=== PATIENT | male | born 1980 | race Caucasian/White ===

== ENCOUNTER 2016-09-22 20:02 | Emergency (ER) | payer SELFPAY ==
[2016-09-22] MEDS ORDERED: Proparacaine 0.5% Ophth Soln 15 ML Bottle EYEBOTH STA (21:50)
--- NOTE | 2016-09-22 22:55 | EDM.PDOC ---
ED HPI EYE COMPLAINT - General Chief Complaint: Eye Problems Stated Complaint: PAIN RT EYE Time Seen by Provider: 09/22/16 20:48 Source: Reports: Patient, Family History Limitations: Reports: No limitations - History of Present Illness INITIAL COMMENTS - FREE TEXT/NARRATIVE: HISTORY AND PHYSICAL: History of present illness: [28-year-old male with no significant past history now complaining of right eye redness for a month . Patient was seen and there is marked for this complaint at which time he had a full eye evaluation including fluorescein staining, slit- lamp examination, and intraocular pressure determination, were unremarkable and the patient was treated with anabiotic ointment for presumed conjunctivitis. Patient was referred for followup with an project superintendent however he was never able to orchestrate this followup and now has returned to the emergency department because of persistent redness and irritation in the right eye. He denies trauma or chemical exposure. Denies foreign body sensation states is irritated and watering with clear discharge. His vision is baseline. No other complaints Review of systems: As per history of present illness and below otherwise all systems reviewed and negative. Past medical history: As per history of present illness and as reviewed below otherwise noncontributory. Surgical history: As per history of present illness and as reviewed below otherwise noncontributory. Social history: No reported history of drug or alcohol abuse. Family history: As per history of present illness and as reviewed below otherwise noncontributory. Physical exam: Right eye with scleral injection, normal reactive pupil, normal- appearing cornea and anterior chamber. Normal EOMI which is painless. Lids everted no foreign body or abnormality identifiable HEENT: Atraumatic, normocephalic, pupils reactive, negative for conjunctival pallor or scleral icterus, mucous membranes moist, throat clear, neck supple, nontender, trachea midline. Lungs: Clear to auscultation, breath sounds equal bilaterally, chest nontender. Heart: S1S2, regular, negative for clicks, rubs, or JVD. Abdomen: Soft, nondistended, nontender. Negative for masses or hepatosplenomegaly. Negative for costovertebral tenderness. Pelvis: Stable nontender. Genitourinary: Deferred. Rectal: Deferred. Extremities: Atraumatic, negative for cords or calf pain. Neurovascular unremarkable. Neuro: Awake, alert, oriented. Cranial nerves grossly unremarkable. Cerebellum unremarkable. Motor and sensory unremarkable throughout. Exam nonfocal. Diagnostics: [] Therapeutics: [] Impression: [] Plan: [] Definitive disposition and diagnosis as appropriate pending reevaluation and review of above. - Related Data Allergies/ADRs: Allergies No Known Allergies Allergy (Verified 09/22/16 21:25) Home Meds: Ambulatory Orders Medication Instructions Recorded Confirmed . [No Known Home Meds] 09/22/16 09/22/16 Past Medical History - Past Health History Medical/Surgical History: Denies Medical/Surgical History - Infectious Disease History Infectious Disease History: Reports: Chicken pox Social & Family History - Family History Family Medical History: Noncontributory - Tobacco Use Smoking Status *Q: Current Every Day Smoker Years of Tobacco use: 10 Packs/Tins Daily: 1 - Caffeine Use Caffeine Use: Reports: Soda - Recreational Drug Use Recreational Drug Use: No ED ROS GENERAL - Review of Systems Review Of Systems: See Below (Per history of present illness) ED EXAM GENERAL W FULL EYE - Physical Exam Exam: See Below (Per history of present illness) Course - Vital Signs Text/Narrative:: Signs and symptoms consistent with viral conjunctivitis with scleral injection. Fluorescein staining with no uptake. Gross corneal exam normal-appearing with normal anterior chamber pupil reactive and equal bilaterally. Clear watery discharge painless extraocular muscle excursion normal. Rober-Pen examination by me with intraocular pressure of 18 on the right and 17 on the left. Patient did get relief with proparacaine administration lip was everted with no foreign body or abnormality identifiable patient states he has anabolic ointment for bedtime and he was given anabolic drops your use during the day. Patient aware of critical importance of close followup with an project superintendent for reevaluation further workup and treatment he agrees with outpatient followup strict return precautions given Last Recorded V/S: Last Vital Signs Temp 36 C 09/22/16 23:17 Pulse 84 09/22/16 23:17 Resp 16 09/22/16 23:17 BP 127/74 09/22/16 23:17 Pulse Ox 99 09/22/16 23:17 - Orders/Labs/Meds Meds: Medications Discontinued Medications Generic Name Dose Route Start Last Admin Trade Name Freq PRN Reason Stop Dose Admin Gentamicin Sulfate 1 gm 09/23/16 06:00 Gentak 0.3% Ophth Oint EYEBOTH TID KARTHIK Gentamicin Sulfate 1 gm 09/22/16 22:53 09/22/16 23:16 Gentak 0.3% Ophth Oint EYEBOTH 09/22/16 22:54 Not Given NOW STA Gentamicin Sulfate 1 ml 09/22/16 23:09 09/22/16 23:14 Garamycin 0.3% Ophth Soln EYEBOTH 09/22/16 23:10 1 drop NOW STA Administration Proparacaine HCl 1 ml 09/22/16 21:50 09/22/16 21:55 Proparacaine 0.5% Ophth Soln EYEBOTH 09/22/16 21:51 1 ml NOW STA Administration Departure - Departure Time of Disposition: 22:50 Disposition: Home, Self-Care 01 Condition: good Clinical Impression: Conjunctivitis, Scleral injection, Eye pain Instructions: Viral Conjunctivitis Referrals: PCP,None [Primary Care Provider] - Forms: ED Department Discharge Additional Instructions: It appears that you have conjunctivitis. This is most likely the result of a virus and should get better on its own, however given that you've had the symptoms for Weeks, it is appropriate for you to followup with an eye doctor Take anti-inflammatory medicines like ibuprofen as well as Tylenol if you continue to have discomfort. Use 2 drops in the affected eye every 2 hours will awake and quarter-inch ointment to have previously been prescribed at bedtime . Is critically important that you followup with an project superintendent tomorrow. Call in the morning for an appointment.
[2016-09-22] MEDS ORDERED: Gentamicin 0.3% Ophth Soln 5 ML Bottle EYEBOTH STA (23:09)
[2016-09-22 23:19] VITALS: BP 127/74
== END 2016-09-22 23:19 | disposition home or self-care (01) ==
LOC: MW.ED 20:02
DX: H10.9 Unspecified conjunctivitis (principal); F17.210 Nicotine dependence, cigarettes, uncomplicated
CPT/HCPCS: 99282; A9270; 99283

== ENCOUNTER 2016-12-23 15:11 | Emergency (ER) | payer SELFPAY ==
--- NOTE | 2016-12-23 16:22 | EDM.PDOC ---
ED HPI GENERAL MEDICAL PROBLEM - General Chief Complaint: General Stated Complaint: SORE/SWOLLEN Time Seen by Provider: 12/23/16 16:05 Source of Information: Reports: Patient History Limitations: Reports: No Limitations - History of Present Illness INITIAL COMMENTS - FREE TEXT/NARRATIVE: HISTORY AND PHYSICAL: History of present illness: [Patient comes to the emergency room complaining of body aches and joint swelling and bloodshot eyes. His symptoms have been present for the past 4 months. He has regular headaches that are sometimes behind his eyes or his forehead or the back of his head. The joints most affected are his index fingers wrist hands feet and ankles. His feet and hands feel numb and tingly at times. He's been taking Tylenol and hot showers which usually provides about 30 minutes of improvement. He does not have a regular primary care provider. He is evaluated several months ago in the ER for eye injection. Denied trauma or injury to his eyes at that time and has not experienced any foreign bodies or trauma to his eyes since that time. No blurred vision or double vision. Overall his vision is not affected by the bloodshot appearance. He denies fever and chills. No sore throat or earaches. Denies cough and chest congestion. No shortness of breath difficulty breathing or chest pain. No abdominal pain or change in his appetite. No nausea vomiting constipation or diarrhea. No burning with urination, blood in his urine urinary frequency, urinary urgency and penile lesions. He has been sexually abstinent for the past 6 months. No history of STI. Eyes previous surgeries and hospitalizations. He does not take any regular medications. No medication allergies. He has not traveled outside the [place] in the past 6 months. Quit smoking 1 month ago. Drinks alcohol socially approximately once per week. Last smoked marijuana 2 years ago.] Review of systems: As per history of present illness and below otherwise all systems reviewed and negative. Past medical history: As per history of present illness and as reviewed below otherwise noncontributory. Surgical history: As per history of present illness and as reviewed below otherwise noncontributory. Social history: No reported history of drug or alcohol abuse. Family history: As per history of present illness and as reviewed below otherwise noncontributory. Physical exam: HEENT: Atraumatic, normocephalic. Lateral conjunctival hemorrhages noted bilaterally. PERRLA. EOMI. Oral mucous membranes moist, throat clear. neck supple, nontender, no lymphadenopathy. Lungs: Clear to auscultation, breath sounds equal bilaterally. No wheezing crackles or rales. Heart: S1S2, regular rate and rhythm. Abdomen: Bowel sounds are normoactive throughout. Abdomen is soft, nondistended , nontender. Negative for masses, guarding or rebound. Negative for costovertebral tenderness. Pelvis: Stable nontender. Genitourinary: Deferred. Rectal: Deferred. Extremities: Atraumatic, negative for cords or calf pain. No cyanosis or edema to feet or lower legs. No deformities appreciated. Neurovascular unremarkable. Neuro: Awake, alert, oriented. Motor and sensory unremarkable throughout. Exam nonfocal. Psych: Alert oriented pleasant. Diagnostics: [CBC, CMP, CRP, sedimentation rate, TSH, uric acid, UA, urine chlamydia and gonorrhea] Impression: [arthralgias] Plan: [Elevated CRP and sedimentation rate. all other labs are unremarkable. Urged patient to follow-up with an professional soccer player. He is given contact information for professional soccer player. Urged him to establish care with a local primary care provider in follow-up regarding abnormal lab results. He is given a prescription for indomethacin 50 mg 3 times a day #30 0 refills. He verbalized understanding of today's discussion.] Definitive disposition and diagnosis as appropriate pending reevaluation and review of above. both feet; both hands Pain Score (Numeric/FACES): 10 - Related Data Allergies Allergy/AdvReac Type Severity Reaction Status Date / Time No Known Allergies Allergy Verified 09/22/16 21:25 Home Meds: Home Meds Acetaminophen [Tylenol] 0 mg PO 12/23/16 [History] Past Medical History - Past Health History Medical/Surgical History: Denies Medical/Surgical History - Infectious Disease History Infectious Disease History: Reports: Chicken Pox Social & Family History - Family History Family Medical History: Noncontributory - Tobacco Use Smoking Status *Q: Never Smoker Years of Tobacco use: 10 Packs/Tins Daily: 1 - Caffeine Use Caffeine Use: Reports: Coffee Caffeine Use Comment: 1 cup daily - Recreational Drug Use Recreational Drug Use: No ED ROS GENERAL - Review of Systems Review Of Systems: ROS reveals no pertinent complaints other than HPI. ED EXAM, GENERAL - Physical Exam Exam: See Below Course - Vital Signs Last Recorded V/S: Last Vital Signs Temp 97.8 F 12/23/16 17:57 Pulse 101 H 12/23/16 17:57 Resp 16 12/23/16 17:57 BP 126/73 12/23/16 17:57 Pulse Ox 99 12/23/16 17:57 - Orders/Labs/Meds Orders: Active Orders 24 hr Category Date Time Status CHLAMYDIA TRACHOMATIS/GC AMPLF Stat Lab 12/23/16 16:26 Received Labs: Laboratory Tests 12/23/16 12/23/16 12/23/16 Range/Units 16:26 16:33 16:33 WBC 8.35 (4.0-11.0) K/uL RBC 4.67 (4.50-5.90) M/uL Hgb 12.8 L (13.0-17.0) g/dL Hct 39.4 (38.0-50.0) % MCV 84.4 (80.0-98.0) fL MCH 27.4 (27.0-32.0) pg MCHC 32.5 (31.0-37.0) g/dL RDW Std Deviation 40.0 (28.0-62.0) fl RDW Coeff of Fercho 13 (11.0-15.0) % Plt Count 396 (150-400) K/uL MPV 9.50 (7.40-12.00) fL Neut % (Auto) 69.0 (48.0-80.0) % Lymph % (Auto) 23.2 (16.0-40.0) % Nance % (Auto) 5.9 (0.0-15.0) % Eos % (Auto) 1.7 (0.0-7.0) % Baso % (Auto) 0.2 (0.0-1.5) % Neut # (Auto) 5.8 H (1.4-5.7) K/uL Lymph # (Auto) 1.9 (0.6-2.4) K/uL Nance # (Auto) 0.5 (0.0-0.8) K/uL Eos # (Auto) 0.1 (0.0-0.7) K/uL Baso # (Auto) 0.0 (0.0-0.1) K/uL Nucleated RBC % 0.0 /100WBC Nucleated RBCs # 0 K/uL ESR (0-14) mm/hr Sodium 138 (136-146) mmol/L Potassium 4.2 (3.5-5.1) mmol/L Chloride 104 (98-110) mmol/L Carbon Dioxide 25 (21-31) mmol/L BUN 13 (6.0-23.0) mg/dL Creatinine 0.8 (0.6-1.5) mg/dL Est Cr Clr Drug Dosing 117.05 mL/min Estimated GFR (MDRD) > 60.0 ml/min Glucose 114 H (60-110) mg/dL Uric Acid (2.1-7.4) mg/dL Calcium 9.8 (8.8-10.8) mg/dL Total Bilirubin 0.3 (0.1-1.5) mg/dL AST 27 (5-40) IU/L ALT 39 (8-54) IU/L Alkaline Phosphatase 93 (40-150) C-Reactive Protein (0.0-0.5) mg/dL Total Protein 8.7 H (6.0-8.0) g/dL Albumin 4.2 (3.5-5.0) g/dL Globulin 4.5 H (2.0-3.5) g/dL Albumin/Globulin Ratio 0.9 L (1.3-2.8) TSH 3rd Generation 4.07 (0.47-5.0) uIU/mL Urine Color YELLOW Urine Appearance CLEAR Urine pH 6.0 (5.0-8.0) Ur Specific [place] 1.020 (1.001-1.035) Urine Protein NEGATIVE (NEGATIVE) mg/dL Urine Glucose (UA) NEGATIVE (NEGATIVE) mg/dL Urine Ketones NEGATIVE (NEGATIVE) mg/dL Urine Occult Blood NEGATIVE (NEGATIVE) Urine Nitrite NEGATIVE (NEGATIVE) Urine Bilirubin NEGATIVE (NEGATIVE) Urine Urobilinogen 0.2 (<2.0) EU/dL Ur Leukocyte Esterase NEGATIVE (NEGATIVE) Urine RBC 0-1 (0-2/HPF) Urine WBC 0-2 (0-5/HPF) Ur Epithelial Cells FEW (NONE-FEW) Urine Bacteria FEW (NEGATIVE) 12/23/16 12/23/16 Range/Units 16:33 16:33 WBC (4.0-11.0) K/uL RBC (4.50-5.90) M/uL Hgb (13.0-17.0) g/dL Hct (38.0-50.0) % MCV (80.0-98.0) fL MCH (27.0-32.0) pg MCHC (31.0-37.0) g/dL RDW Std Deviation (28.0-62.0) fl RDW Coeff of Fercho (11.0-15.0) % Plt Count (150-400) K/uL MPV (7.40-12.00) fL Neut % (Auto) (48.0-80.0) % Lymph % (Auto) (16.0-40.0) % Nance % (Auto) (0.0-15.0) % Eos % (Auto) (0.0-7.0) % Baso % (Auto) (0.0-1.5) % Neut # (Auto) (1.4-5.7) K/uL Lymph # (Auto) (0.6-2.4) K/uL Nance # (Auto) (0.0-0.8) K/uL Eos # (Auto) (0.0-0.7) K/uL Baso # (Auto) (0.0-0.1) K/uL Nucleated RBC % /100WBC Nucleated RBCs # K/uL ESR 48 H (0-14) mm/hr Sodium (136-146) mmol/L Potassium (3.5-5.1) mmol/L Chloride (98-110) mmol/L Carbon Dioxide (21-31) mmol/L BUN (6.0-23.0) mg/dL Creatinine (0.6-1.5) mg/dL Est Cr Clr Drug Dosing mL/min Estimated GFR (MDRD) ml/min Glucose (60-110) mg/dL Uric Acid 5.5 (2.1-7.4) mg/dL Calcium (8.8-10.8) mg/dL Total Bilirubin (0.1-1.5) mg/dL AST (5-40) IU/L ALT (8-54) IU/L Alkaline Phosphatase (40-150) C-Reactive Protein 3.52 H (0.0-0.5) mg/dL Total Protein (6.0-8.0) g/dL Albumin (3.5-5.0) g/dL Globulin (2.0-3.5) g/dL Albumin/Globulin Ratio (1.3-2.8) TSH 3rd Generation (0.47-5.0) uIU/mL Urine Color Urine Appearance Urine pH (5.0-8.0) Ur Specific [place] (1.001-1.035) Urine Protein (NEGATIVE) mg/dL Urine Glucose (UA) (NEGATIVE) mg/dL Urine Ketones (NEGATIVE) mg/dL Urine Occult Blood (NEGATIVE) Urine Nitrite (NEGATIVE) Urine Bilirubin (NEGATIVE) Urine Urobilinogen (<2.0) EU/dL Ur Leukocyte Esterase (NEGATIVE) Urine RBC (0-2/HPF) Urine WBC (0-5/HPF) Ur Epithelial Cells (NONE-FEW) Urine Bacteria (NEGATIVE) Departure - Departure Time of Disposition: 17:40 Disposition: Home, Self-Care 01 Condition: Good Clinical Impression: Arthralgia Qualifiers: Joint pain location: unspecified Qualified Code(s): M25.50 - Pain in unspecified joint - Discharge Information Instructions: Joint Pain Referrals: PCP,None [Primary Care Provider] - Forms: ED Department Discharge Additional Instructions: The following information is given to patients seen in the emergency department who are being discharged to home. This information is to outline your options for follow-up care. We provide all patients seen in our emergency department with a follow-up referral. The need for follow-up, as well as the timing and circumstances, are variable depending upon the specifics of your emergency department visit. If you don't have a primary care physician on staff, we will provide you with a referral. We always advise you to contact your personal physician following an emergency department visit to inform them of the circumstance of the visit and for follow-up with them and/or the need for any referrals to a consulting specialist. The emergency department will also refer you to a specialist when appropriate. This referral assures that you have the opportunity for follow-up care with a specialist. All of these measure are taken in an effort to provide you with optimal care, which includes your follow-up. Under all circumstances we always encourage you to contact your private physician who remains a resource for coordinating your care. When calling for follow-up care, please make the office aware that this follow-up is from your recent emergency room visit. If for any reason you are refused follow-up, please contact the [facility] emergency department at and asked to speak to the emergency department charge nurse. [facility] [address] [place] [id number] You're scheduled to follow-up at the clinic listed above on December 29 at 9:[address] Madrigal. It is imperative that you are seen by an professional soccer player at the clinic listed below. [address] [address] Take medication as prescribed. Return to ER as needed as discussed. - My Orders Last 24 Hours: My Active Orders 12/23/16 16:26 CHLAMYDIA TRACHOMATIS/GC AMPLF Stat - Assessment/Plan Last 24 Hours: My Active Orders 12/23/16 16:26 CHLAMYDIA TRACHOMATIS/GC AMPLF Stat
[2016-12-23 17:08] LABS: CHLORIDE,CL 104 mmol/L (98-110); SODIUM,NA 138 mmol/L (136-146)
[2016-12-23 17:58] VITALS: BP 126/73
== END 2016-12-23 17:58 | disposition home or self-care (01) ==
LOC: MW.ED 15:11
DX: M25.50 Pain in unspecified joint (principal); Z87.891 Personal history of nicotine dependence
CPT/HCPCS: 36415; 80053; 81001; 84443; 84550; 85025; 85652; 86140; 87491; 87591; 99283